=== PATIENT | female | born 1990 | race African-American/Black ===

== ENCOUNTER 2016-10-10 17:01 | Emergency (ER) | payer MEDICAID ==
[~2016-10-10] VITALS: Ht 167.6 cm; Wt 95.7 kg
[~2016-10-10 17:01] MED LIST: ALPR0.5T; NOR5T
[2016-10-10 17:23] VITALS: BP 135/63
== END 2016-10-10 22:10 | disposition left against medical advice (07) ==
LOC: ER 17:09
DX: N93.9 Abnormal uterine and vaginal bleeding, unspecified (principal); M54.9 Dorsalgia, unspecified; Z53.21 Procedure and treatment not carried out due to patient leaving prior to being seen by health care provider; W18.39XA Other fall on same level, initial encounter; Y93.89 Activity, other specified; Y99.8 Other external cause status; Y92.89 Other specified places as the place of occurrence of the external cause

== ENCOUNTER 2016-10-24 13:46 | Emergency (ER) | payer MEDICAID ==
[~2016-10-24] VITALS: Ht 167.6 cm; Wt 99.8 kg
[2016-10-24 14:32] LABS: Basophils # (auto) 0 uL; Basophils % (auto) 0.2 % (0.0-2.0); Eosinophils # (auto) 0.2 uL; Hematocrit 36.3 % (36.0-46.0); Hemoglobin 11.8 g/dL (12.2-16.2); Lymphocytes # (auto) 1.5 uL; Lymphocytes % (auto) 13.5 % (10.0-50.0); Mean Corpuscular Hemoglobin 27.8 pg (28.0-32.0); Mean Corpuscular Hgb Conc. 32.5 g/dL (32.0-36.0); Mean Corpuscular Volume 85.7 fL (80.0-100.0); Mean Platelet Volume 8.5 fL (7.4-10.4); Monocytes # (auto) 0.8 uL; Monocytes % (auto) 7.5 % (0.0-12.0); Neutrophils # (auto) 8.3 uL; Neutrophils % (auto) 76.8 % (37.0-80.0); Platelet Count (auto) 246 10^3/uL (140-450); White Blood Cell 10.8 10^3/uL (4.4-10.8)
[2016-10-24 14:49] LABS: Urine Bilirubin Negative (Negative); Urine Blood Negative /uL (Negative); Urine Color Yellow (Yellow); Urine Glucose Normal (Normal); Urine Ketone Negative (Negative); Urine Mucus FEW (None Seen); Urine Nitrite Negative (Negative); Urine RBC <1 /hpf (0 - 4); Urine Squamous Epithelial Cell FEW /hpf (<5); Urine Urobilinogen Normal (Negative)
[2016-10-24 14:58] LABS: Albumin 2.9 g/dL (3.4-5.0); BUN/Creatinine Ratio 9.5; Calcium 8.3 mg/dL (8.5-10.1); Potassium 3.8 mmol/L (3.5-5.1)
[2016-10-24 15:01] LABS: Bilirubin, Total 0.1 mg/dL (0.2-1.0); Total Protein 6.9 g/dL (6.4-8.2)
[2016-10-24] MEDS ORDERED: SODIUM CHLORIDE 0.9% 1,000 ML IVB ONE (15:58)
[2016-10-24 17:49] VITALS: BP 115/63
== END 2016-10-24 18:48 | disposition home or self-care (01) ==
LOC: ER 13:48
DX: O20.0 Threatened abortion (principal); Z3A.14 14 weeks gestation of pregnancy
CPT/HCPCS: 36415; 76805; 80053; 81001; 81025; 84702; 85025; 85049; 96360; 99285; J7030

== ENCOUNTER 2023-05-28 08:20 | Emergency (ER) | payer MEDICAID, OTHER ==
[~2023-05-28] VITALS: Ht 167.6 cm; Wt 117.5 kg
[~2023-05-28 08:20] MED LIST changes: +HYDR-4833; -NOR5T
[2023-05-28 09:33] VITALS: TEMP 97.9; O2SAT 100
[2023-05-28] MEDS ORDERED: ONDANSETRON ODT 4 MG TAB PO ONE (11:45)
[2023-05-28] MEDS ORDERED: MORPHINE SULFATE 4 MG/ML SYR/VIAL IM ONE (11:45)
[2023-05-28 12:20] VITALS: BP 112/62; PULSE 82; RESP 18
[2023-05-28] MEDS ORDERED: IBUP-1454 PO (12:39)
[2023-05-28] MEDS ORDERED: ACET-1304 PO (12:39)
== END 2023-05-28 12:56 | disposition home or self-care (01) ==
LOC: ER 08:20
DX: S92.351A Displaced fracture of fifth metatarsal bone, right foot, initial encounter for closed fracture (principal); Z79.1 Long term (current) use of non-steroidal anti-inflammatories (NSAID); Z79.899 Other long term (current) drug therapy; V49.9XXA Car occupant (driver) (passenger) injured in unspecified traffic accident, initial encounter; Y93.89 Activity, other specified; Y92.89 Other specified places as the place of occurrence of the external cause; Y99.8 Other external cause status
CPT/HCPCS: 73630; 96372; 99283; J2270; Q0162